=== PATIENT | female | born 1950 | race Caucasian/White ===

== ENCOUNTER 2016-11-27 06:39 | Day surgery (SDC) | payer MEDICARE, MEDICAID ==
[~2016-11-27] VITALS: Ht 162.6 cm; Wt 67.9 kg
[~2016-11-27 06:39] MED LIST: ACETATE PO; ASA CHILDREN'S81 MG PO; BENZONATATE100 MG PO; CALC PO; HUMALOG SQ; LANTUS SQ; LASIX80 MG PO; LISINOPRIL20 MG PO; NEURONTIN100 MG PO; NIFEDIPINE PO; SIMVASTATIN40 MG PO; ZOFRAN4 MG PO; renvela PO
== END 2016-11-27 10:14 | disposition home or self-care (01) ==
LOC: RAD.S 06:39
PROC: B51WYZZ Fluoroscopy of Dialysis Shunt/Fistula using Other Contrast (ICD-10-PCS; principal; 2016-11-27)
DX: T82.858A Stenosis of other vascular prosthetic devices, implants and grafts, initial encounter (principal); N18.6 End stage renal disease; Z79.82 Long term (current) use of aspirin; Z79.899 Other long term (current) drug therapy

== ENCOUNTER 2016-11-30 12:12 | Day surgery (SDC) | payer MEDICARE, MEDICAID ==
[~2016-11-30] VITALS: Ht 162.6 cm; Wt 63.5 kg
== END 2016-11-30 15:41 | disposition home or self-care (01) ==
LOC: RAD.S 12:12 → EDSTATUS 13:00 → RAD.S 15:41
PROC: B50WYZZ Plain Radiography of Dialysis Shunt/Fistula using Other Contrast (ICD-10-PCS; principal; 2016-11-30)
DX: T82.858A Stenosis of other vascular prosthetic devices, implants and grafts, initial encounter (principal); N18.6 End stage renal disease; Z79.82 Long term (current) use of aspirin; Z79.899 Other long term (current) drug therapy

== ENCOUNTER 2016-12-12 05:31 | Emergency (ER) | payer MEDICARE, MEDICAID ==
--- NOTE | 2016-12-12 19:14 | ER ---
ADMIT: 12/12/2016 RM/LOC: ER [facility] MR#: [id number] [address] [id number] [place] [address] Emergency Room Report SEX: F AGE: 66 : 1950 DATE: 12/12/2016 HISTORY OF PRESENT ILLNESS: The patient is a 66-year-old female with a past medical history of chronic kidney disease, on dialysis and also diabetes, who came to the ER with chief complaint of nausea and vomiting, nonbilious, non- fecal matter for 1 day. Per daughter and per patient, she missed dialysis session yesterday and also she is not using the insulin as prescribed, and the patient is per daughter and per patient binge drinking alcohol for the last few days, allegedly the last alcohol intake was 2 days ago. The patient denies taking any other alcohol than the vodka, and denies taking methanol/wood alcohol or ethylene glycol or other components. The patient also complains of very mild epigastric pain. The patient states she has not been eating or drinking well the last 2 days because she was binge drinking. PHYSICAL EXAMINATION: GENERAL: The patient was in mild distress, nauseous. Alert, oriented to person, place, and time. VITAL SIGNS: Blood pressure was 160/48 with heart rate of 90. The patient was afebrile in the ER. HEAD AND NECK: Noncontributory. LUNGS: Clear bilaterally with normal S1, S2. ABDOMEN: Soft. EXTREMITIES: There is no swelling of the lower extremities or upper extremities or dependent area on the lower back. LABORATORY AND IMAGING DATA: Fingerstick blood sugar was 96. Chest x-ray did not show any infiltration or other pathologies. Serum ketones were negative. The patient had high anion gap, acidosis with carbon dioxide of 15 and an anion gap of 27, which could be justified by chronic kidney disease. Lipase was 197 with AST of 65 and ALT of 38. Potassium level was 4.5 and sodium was 128, mild hyponatremia, possible due to hypovolemia. The patient received two boluses of half a liter of normal saline. The patient received Zofran for nausea and vomiting. Creatinine was 10.8. Abdominal exam was benign and the patient had no tenderness or rebound or guarding. Ethanol level was 78 and troponin was negative too. At this stage, gastritis, peptic ulcer are at the top of our differentials. PLAN: Per family, they can follow up today for another session of dialysis, already contacted the [facility]. The patient is stable to be discharged to home. To be followed up by primary doctor and also dialysis session today as needed. Leonel Darden MD/ chante JOB #: [id number] CC: Leonel Darden MD, Attending Physician Dana Moreira APRN-JAYDA, Family Physician
--- NOTE | 2016-12-16 23:07 | ER ---
ADMIT: 12/12/2016 RM/LOC: ER [facility] MR#: [id number] [id number] [place], [place] [address] [address] [place] [address] Emergency Room Report SEX: F AGE: 66 : 1950 DATE: 12/12/2016 ADDENDUM: The patient was seen by Dr. Darden and before being discharged, we are waiting for her lactic acid. Her lactic acid came back at 3.1. The patient did have that drawn shortly after arrival and she got a liter of normal saline here. Her symptoms that she had when she presented are significantly improved. She states she wants to go home. She is actually set up to go to dialysis directly from here and she has missed her dialysis as she has been on an alcohol massey over the weekend. I believe she would benefit more by being discharged at this time despite her slightly elevated lactic acid as she needs to go get her dialysis and it is the only way I can get it done for her today. Due to her noncompliance, I believe that is the overall best clinical outcome at this time. I do believe her lactic acid is likely improved from the time it was initially drawn as she has gotten a liter of normal saline since she has been in the Emergency Department. She is told that after dialysis, if she has any issues, she can return to the Emergency Department if she feels like she has an emergency. Enrique Chaney MD/ chante JOB #: [id number] CC: Leonel Darden MD, Attending Physician Dana Moreira APRN-JAYDA, Family Physician
== END 2016-12-12 08:13 | disposition home or self-care (01) ==
LOC: ER 05:31
DX: K29.70 Gastritis, unspecified, without bleeding (principal); E11.22 Type 2 diabetes mellitus with diabetic chronic kidney disease; N18.9 Chronic kidney disease, unspecified; R11.2 Nausea with vomiting, unspecified; Z79.82 Long term (current) use of aspirin; Z79.4 Long term (current) use of insulin; Z79.899 Other long term (current) drug therapy

== ENCOUNTER 2017-01-02 10:18 | Emergency (ER) | payer MEDICARE, MEDICAID ==
--- NOTE | 2017-01-07 10:38 | ER ---
ADMIT: 01/02/2017 RM/LOC: [facility] MR#: [id number] [id number] [place], [place] [address] [address] [address] Emergency Room Report SEX: F AGE: 66 : 1950 DATE: 01/02/2017 ADDENDUM: A 66-year-old white female, who came in with a kind of generalized body aches. While going through dialysis, she could not get through it. Comes over here and her pain is essentially gone. CBC and chemistry are negative except her hemoglobin has dropped from 10.2 to 7.6 in about a month. I spoke with Dr. Boo, site inspector on that and they will follow that. There were some question that she had some problem with alcohol in the past. Family was concerned she was drinking again, but she has not drank in two days, she has no alcohol in her. She has no withdrawal like symptoms. Her main problem is her chronic renal failure along with anemia. I spoke with Dr. Mckeon, who supposedly has an appointment with her in May, and Dr. Boo said that he would follow the anemia. She can get her dialysis done on Saturday as scheduled and then follow up accordingly. CONDITION ON DISCHARGE: Good. Messi Chowdhury MD/ chante JOB #: [id number] CC: Messi Chowdhury MD, Attending Physician Dana Moreira APRN-MEAL PACKER, Family Physician
== END 2017-01-02 15:40 | disposition home or self-care (01) ==
LOC: ER 10:18
DX: D64.9 Anemia, unspecified (principal); E11.22 Type 2 diabetes mellitus with diabetic chronic kidney disease; I12.0 Hypertensive chronic kidney disease with stage 5 chronic kidney disease or end stage renal disease; N18.6 End stage renal disease; Z99.2 Dependence on renal dialysis

== ENCOUNTER → 2017-01-10 | Outpatient (CLI) | payer MEDICARE, MEDICAID | END | disposition home or self-care (01) | LOC: RAD.S 01-08 08:30 | DX: Z12.31 Encounter for screening mammogram for malignant neoplasm of breast (principal); R92.1 Mammographic calcification found on diagnostic imaging of breast ==